=== PATIENT | male | born 1985 | race Caucasian/White ===

== ENCOUNTER 2017-09-04 06:06 | Emergency (ER) | payer OTHER ==
[~2017-09-04] VITALS: Ht 182.9 cm; Wt 83.9 kg
[2017-09-04 06:13] VITALS: BP 120/78
[2017-09-04] MEDS ORDERED: REMICADE 1100 MG/VIA IV (06:16)
[2017-09-04] MEDS ORDERED: PREDNISONE 5 MG5 M1 PO (06:16)
== END 2017-09-04 06:42 | disposition left against medical advice (07) ==
LOC: M.ERS 06:06
DX: R05 Cough (principal)